=== PATIENT | female | born 1985 | race Caucasian/White ===

== ENCOUNTER 2016-11-28 02:21 | Emergency (ER) | payer SELFPAY ==
[2016-11-28] MEDS ORDERED: diphenhydrAMINE HCL 25 MG CAPSULE (FP) PO ONE ×2 (03:55→04:01)
[2016-11-28] MEDS ORDERED: CALAMINE 8% TOPICAL LOTION 177 ML BOTTLE TP PRN (03:55)
[2016-11-28 04:05] VITALS: BP 116/65; PULSE 58; TEMP 97.8; BMI 30.7
--- NOTE | 2016-11-28 04:06 | PDOC ---
History of Present Illness - General Chief Complaint: Rash Stated Complaint: RASH Time Seen by Provider: 11/28/16 03:28 - History of Present Illness Initial Comments: 11/28/16 03:56 31 year old previously healthy female presenting with 1.5 days of diffuse itchy rash. She denies insect bite, herbaceous contact, or other contact. Denies any new perfume, clothing, soap or anything different on her body. She has no known allergies. The rash originally started on her back and has spread to her arms, legs, and chests since she started scratching it. Denies any fevers, chills, nausea vomiting, diarrhea, or other symptoms. She does not have a primary care physician. Her pharmacy is the [facility] on [facility]. Past History - Past Medical History Allergies/Adverse Reactions: Allergies Allergy/AdvReac Type Severity Reaction Status Date / Time No Known Drug Allergies Allergy Unknown Verified 11/28/16 03:53 Home Medications: Ambulatory Orders Amoxicillin - [Amoxicillin 500mg Capsule -] 500 mg PO TID #30 capsule 01/13/13 Neomycin/Polymyxin B Sulf/Hc [Efnxrkum-Gwnblsdwr-Ls Ear Soln] 4 drop OT Acetaminophen [Tylenol .Regular Strength -] 650 mg PO Q4H PRN #0 tablet Ibuprofen [Motrin -] 600 mg PO Q4H PRN #0 tablet 01/21/13 Prednisone [Deltasone -] 40 mg PO DAILY #10 tablet 11/28/16 Prednisone [Deltasone -] 40 mg PO DAILY #5 tablet 11/28/16 Anemia: No Asthma: No Cancer: No Cardiac Disorders: No CVA: No COPD: No CHF: No Dementia: No Diabetes: No GI Disorders: No Disorders: No HTN: No Hypercholesterolemia: No Liver Disease: No Seizures: No Thyroid Disease: No - Surgical History Abdominal Surgery: No Appendectomy: No Cardiac Surgery: No Cholecystectomy: No Lung Surgery: No Neurologic Surgery: No Orthopedic Surgery: No - Reproductive History (#): 4 Para: 3 Therapeutic (s) & number: No Spontaneous : 0 - Psycho/Social/Smoking Cessation Hx Anxiety: No Suicidal Ideation: No Smoking Status: No Smoking History: Never smoked Have you smoked in the past 12 months: No Number of Cigarettes Smoked Daily: 0 Hx Alcohol Use: No Drug/Substance Use Hx: No Substance Use Type: None Hx Substance Use Treatment: No Review of Systems - Review of Systems Constitutional: No: Chills, Diaphoresis, Fever, Loss of Appetite HEENTM: No: Blurred Vision, Recent change in vision Respiratory: No: Cough, Orthopnea, Shortness of Breath, Stridor, Wheezing Cardiac (ROS): No: Chest Pain, Edema, Irregular Heart Rate ABD/GI: No: Diarrhea, Nausea, Poor Appetite, Vomiting : No: Burning, Dysuria Musculoskeletal: No: Joint Pain, Joint Swelling Integumentary: Yes: Erythema, Pruritus, Rash Neurological: No: Headache, Weakness *Physical Exam - Physical Exam General Appearance: Yes: Nourished, Appropriately Dressed. No: Apparent Distress HEENT: positive: EOMI, SALAS, Normal ENT Inspection, Normal Voice Neck: positive: Normal Thyroid, Supple. negative: Tender Respiratory/Chest: positive: Lungs Clear, Normal Breath Sounds. negative: Chest Tender, Respiratory Distress, Accessory Muscle Use Cardiovascular: positive: Regular Rhythm, Regular Rate, S1, S2. negative: Edema , JVD, Murmur Gastrointestinal/Abdominal: positive: Normal Bowel Sounds, Flat, Soft. negative : Tender Musculoskeletal: positive: Normal Inspection Extremity: positive: Erythema, Inflammation, Other (Erythamtous macular blacnhing rash diffuse across upper chest, upper back, upper arms, and thighs.) Integumentary: positive: Dry, Warm, Erythema, Rash (Per above) Neurologic: positive: Fully Oriented, Alert, Normal Mood/Affect Medical Decision Making - Medical Decision Making Healthy 31 year old female with pruritic erythematous blanching macular rash diffusely spread across her upper back, chest, legs, and arms. No sign of infection or anaphylaxis. Will treat the patient with Benadryl, 40MG steroids x 5 days, and calamine lotion with jewelry designer follow up as this is most likely an allergic reaction given nausea as well. 11/28/16 04:29 *DC/Admit/Observation/Transfer Diagnosis at time of Disposition: Rash and nonspecific skin eruption - Discharge Dispostion Condition at time of disposition: Improved Admit: No - Prescriptions Prescriptions: Prednisone [Deltasone -] 40 mg PO DAILY #5 tablet Prednisone [Deltasone -] 40 mg PO DAILY #10 tablet - Referrals Referrals: Bishop Kaminski MD [Staff Physician] - - Patient Instructions Additional Instructions: You were seen for a rash across your body. We believe that this is most likely an allergic reaction. Please take the steroids for 5 days, Benadryl as needed over the counter, and use the calamine lotion as needed. Please return if you have fevers, chills, or the rash does not get better. Please follow up with Dr. Kaminski the jewelry designer. - Attestations Physician Attestion: 11/28/16 04:37 I, Dr. Sandra Nieto, attest that this document has been prepared under my direction and personally reviewed by me in its entirety. I further attest, that it accurately reflects all work, treatment, procedures and medical decision -making performed by me.
--- NOTE | 2016-11-28 04:27 | PDOC ---
Attending Attestation - Resident Resident Name: Sandra Nieto - ED Attending Attestation I have performed the following: I have examined & evaluated the patient, The case was reviewed & discussed with the resident, I agree w/resident's findings & plan, Exceptions are as noted - HPI HPI: 11/28/16 04:25 31-year-old female with no past medical history presents with diffuse urticaria. The patient reports that she had noted symptoms in her back yesterday but progressed throughout her we'll body. She does not know any known exposures. She reports that is quite itchy. She is felt somewhat little nauseous with this but denies any pain or fevers. Denies any airway issues or chest pain. Do not take any medications. - Physicial Exam PE: 11/28/16 04:26 GENERAL: Awake, alert, and fully oriented, in no acute distress. HEAD: No signs of trauma EYES: PERRLA, EOMI, sclera anicteric, conjunctiva clear ENT: Auricles normal inspection, hearing grossly normal, nares patent, oropharynx clear without exudates. NECK: Normal ROM, supple, no lymphadenopathy, JVD, or masses LUNGS: Breath sounds equal, clear to auscultation bilaterally. No wheezes, and no crackles HEART: Regular rate and rhythm, normal S1 and S2, no murmurs, rubs or gallops ABDOMEN: Soft, nontender, normoactive bowel sounds. No guarding, no rebound. No masses EXTREMITIES: Normal range of motion, no edema. No clubbing or cyanosis. No cords, erythema, or tenderness NEUROLOGICAL: Cranial nerves II through XII grossly intact. Normal speech, normal gait SKIN: Warm, Dry, normal turgor. Diffuse urticaria on trunk, back, abdomen, extremities - Medical Decision Making 11/28/16 04:26 The patient likely has an ALLERGIC reaction. No signs of anaphylaxis. We'll give Benadryl and prednisone and have patient referred to an bus driver/monitor. Return precautions given.
== END 2016-11-28 04:59 | disposition home or self-care (01) ==
LOC: JER 02:21
DX: R21 Rash and other nonspecific skin eruption (principal)
CPT/HCPCS: 99281-25

== ENCOUNTER 2019-02-19 21:44 | Emergency (ER) | payer OTHER ==
[2019-02-19 22:12] VITALS: BP 127/60; PULSE 59; TEMP 98.1; BMI 35.6
--- NOTE | 2019-02-19 23:20 | PDOC ---
*Physical Exam - Vital Signs Last Vital Signs Temp Pulse Resp BP Pulse Ox 98.1 F 59 L 17 127/60 100 02/19/19 22:10 02/19/19 22:10 02/19/19 22:10 02/19/19 22:10 02/19/19 22:10 Medical Decision Making - Medical Decision Making 02/19/19 23:20 Patient seen by the advanced practice provider under my direct supervision. Ancillary testing reviewed as necessary. I agree with plan as outlined by the advanced practice provider. Discharge - Discharge Information Problems reviewed: Yes Clinical Impression/Diagnosis: Right arm pain Condition: Stable Disposition: HOME - Follow up/Referral - Patient Discharge Instructions Patient Printed Discharge Instructions: DI for Arm Pain Additional Instructions: take tylenol or ibuprofen every 6 hours as needed for pain follow up with your doctor as soon as possible. - Post Discharge Activity
--- NOTE | 2019-02-19 23:26 | PDOC ---
History of Present Illness - General Chief Complaint: Pain Stated Complaint: PAIN Time Seen by Provider: 02/19/19 23:15 History Source: Patient - History of Present Illness Initial Comments: 02/19/19 23:19 33 year old c/o upper back pain for 1-3 months. patient is c/o right antecubital area pain for the last 1 month now worse. patient denies taking any pain medication. denies recent travel, denies OCP use. 02/19/19 23:51 Past History - Past Medical History Allergies/Adverse Reactions: Allergies Allergy/AdvReac Type Severity Reaction Status Date / Time No Known Drug Allergies Allergy Unknown Verified 02/19/19 22:12 Home Medications: Ambulatory Orders Amoxicillin - [Amoxicillin 500mg Capsule -] 500 mg PO TID #30 capsule 01/13/13 Neomycin/Polymyxin B Sulf/Hc [Zpuylivu-Dixytgdzy-Wy Ear Soln] 4 drop OT Acetaminophen [Tylenol .Regular Strength -] 650 mg PO Q4H PRN #0 tablet Ibuprofen [Motrin -] 600 mg PO Q4H PRN #0 tablet 01/21/13 predniSONE [Deltasone -] 40 mg PO DAILY #10 tablet 11/28/16 predniSONE [Deltasone -] 40 mg PO DAILY #5 tablet 11/28/16 Anemia: No Asthma: No Cancer: No Cardiac Disorders: No CVA: No COPD: No CHF: No Dementia: No Diabetes: No GI Disorders: No Disorders: No HTN: No Hypercholesterolemia: No Liver Disease: No Seizures: No Thyroid Disease: No - Surgical History Abdominal Surgery: No Appendectomy: No Cardiac Surgery: No Cholecystectomy: No Lung Surgery: No Neurologic Surgery: No Orthopedic Surgery: No - Reproductive History (#): 4 Para: 3 Therapeutic (s) & number: No Spontaneous : 0 - Psycho Social/Smoking Cessation Hx Smoking Status: No Smoking History: Never smoked Have you smoked in the past 12 months: No Number of Cigarettes Smoked Daily: 0 Information on smoking cessation initiated: No Hx Alcohol Use: No Drug/Substance Use Hx: No Substance Use Type: None Hx Substance Use Treatment: No *Physical Exam - Vital Signs Last Vital Signs Temp Pulse Resp BP Pulse Ox 98.1 F 59 L 17 127/60 100 02/19/19 22:10 02/19/19 22:10 02/19/19 22:10 02/19/19 22:10 02/19/19 22:10 - Physical Exam General Appearance: Yes: Appropriately Dressed Respiratory/Chest: positive: Lungs Clear Cardiovascular: positive: Regular Rhythm, Regular Rate Extremity: positive: Normal Capillary Refill, Other (+ distal pulse) Integumentary: positive: Normal Color, Dry, Warm Neurologic: positive: Fully Oriented, Alert Medical Decision Making - Medical Decision Making 02/20/19 06:32 A: right arm pain P: us negative for DVT Nsaids PCP follow up Discharge - Discharge Information Problems reviewed: Yes Clinical Impression/Diagnosis: Right arm pain Condition: Stable Disposition: HOME - Follow up/Referral - Patient Discharge Instructions Patient Printed Discharge Instructions: DI for Arm Pain Additional Instructions: take tylenol or ibuprofen every 6 hours as needed for pain follow up with your doctor as soon as possible. - Post Discharge Activity
[2019-02-19] MEDS ORDERED: ACETAMINOPHEN 500 MG TABLET (FP) PO ONE (23:29)
[2019-02-19] MEDS ORDERED: ACETAMINOPHEN 500 MG TABLET (FP) ONE (23:54)
== END 2019-02-20 01:05 | disposition home or self-care (01) ==
LOC: JER 21:44
DX: M79.601 Pain in right arm (principal)
CPT/HCPCS: 93971; 99281-25

== ENCOUNTER 2021-10-10 01:04 | Emergency (ER) | payer OTHER ==
[2021-10-10 01:27] VITALS: BP 108/75; PULSE 56; TEMP 98.2; BMI 31.9
[2021-10-10] MEDS ORDERED: ACETAMINOPHEN 500 MG TABLET (FP) PO ONE (02:53)
[2021-10-10] MEDS ORDERED: METHOCARBAMOL 500 MG TABLET PO ONE (02:53)
[2021-10-10] MEDS ORDERED: LIDOCAINE 5% TOPICAL PATCH TP ONE (02:53)
[2021-10-10] MEDS ORDERED: METHOCARBAMOL 500 MG TABLET ONE ×2 (03:14→03:20)
[2021-10-10] MEDS ORDERED: LIDOCAINE 5% TOPICAL PATCH ONE (03:14)
[2021-10-10] MEDS ORDERED: IBUPROFEN 600 MG TABLET (FP) PO ONE ×2 (03:17→03:19)
[2021-10-10] MEDS ORDERED: LIDOCAINE PATCH REMOVAL MC SCH (22:00)
== END 2021-10-10 06:13 | disposition home or self-care (01) ==
LOC: JER 01:04
DX: M62.830 Muscle spasm of back (principal)
CPT/HCPCS: 72131-TC; 99284-25

== ENCOUNTER 2022-11-17 14:24 | Emergency (ER) | payer OTHER ==
[2022-11-17 14:31] VITALS: BP 104/61; PULSE 63; RESP 16; TEMP 98.4; BMI 20.5
[2022-11-17] MEDS ORDERED: KETOROLAC TROMETHAMINE 15 MG/ML VIAL IVPUSH ONE (15:25)
[2022-11-17 16:16] LABS: BASO % 0.5 % (0-2.0); EOS % 5.8 % (0-4.5); HEMATOCRIT 38.1 % (32.4-45.2); HEMOGLOBIN 12.4 GM/dL (10.7-15.3); LYMPH % 23.1 % (8-40); MCH 27.3 pg (25.7-33.7); MCHC 32.6 g/dl (32.0-36.0); MEAN CELL VOLUME 83.8 fl (80-96); MEAN PLT VOLUME 7.7 fl (7.5-11.1); MONO % 9.6 % (3.8-10.2); PLATELET COUNT 251 10^3/uL (134-434); RBC 4.55 M/mm3 (3.60-5.2); RDW 14.6 % (11.6-15.6); WHITE BLOOD COUNT 7.6 K/mm3 (4.0-10.0)
[2022-11-17 16:23] LABS: EPI CELLS 27 /uL (0-25.1); HYALINE CASTS 0 /uL (0-3.1); URINE APPEARANCE CLEAR; URINE BACTERIA 504 /uL (0-1359); URINE BILIRUBIN NEGATIVE (NEGATIVE); URINE COLOR YELLOW; URINE GLUCOSE (UA) NEGATIVE (NEGATIVE); URINE KETONE NEGATIVE (NEGATIVE); URINE LEUK ESTERASE TRACE (NEGATIVE); URINE NITRITE NEGATIVE (NEGATIVE); URINE PROTEIN NEGATIVE (NEGATIVE); URINE RBC 4 /uL (0-23.9); URINE UROBILINOGEN 0.2 mg/dL (0.2-1.0); URINE WBC 6 /uL (0-25.8)
[2022-11-17 16:47] LABS: CHLORIDE 105 mmol/L (98-107); POTASSIUM 4.1 mmol/L (3.5-5.1); SODIUM 139 mmol/L (136-145)
[2022-11-17 16:49] LABS: ALBUMIN 3.8 g/dl (3.4-5.0); ANION GAP 8 MMOL/L (8-16); BLOOD UREA NITROGEN 14.3 mg/dL (7-18); CO2 26 mmol/L (21-32); GLUCOSE,RANDOM 90 mg/dL (74-106)
[2022-11-17 16:52] LABS: CREATININE 0.6 mg/dL (0.55-1.3); SGOT/AST 23 U/L (15-37); SGPT/ALT 31 U/L (13-61)
[2022-11-17 16:54] LABS: BILIRUBIN,TOTAL < 0.1 mg/dL (0.2-1); TOT PROT 7.5 g/dl (6.4-8.2)
[2022-11-17 16:55] LABS: ALK PHOS 63 U/L (45-117)
[2022-11-17 17:23] LABS: ERYTHROCYTE SEDIMENTATION RATE 8 mm/hr (0-20)
[2022-11-20 00:06] LABS: CYCLIC CITRULLINE PEPTIDE AB 6 units (0-19)
== END 2022-11-17 16:14 | disposition home or self-care (01) ==
LOC: JERFT 14:24
PROC: 3E0333Z Introduction of Anti-inflammatory into Peripheral Vein, Percutaneous Approach (ICD-10-PCS; principal; 2022-11-17)
DX: M79.644 Pain in right finger(s) (principal); M79.645 Pain in left finger(s); M79.674 Pain in right toe(s); M79.675 Pain in left toe(s); R22.43 Localized swelling, mass and lump, lower limb, bilateral; R22.33 Localized swelling, mass and lump, upper limb, bilateral; M19.90 Unspecified osteoarthritis, unspecified site
CPT/HCPCS: 36415; 80053; 81003; 85025; 85651; 86038; 86200; 86431; 99284-25

== ENCOUNTER 2023-07-14 13:33 | Emergency (ER) | payer OTHER ==
[2023-07-14 13:50] VITALS: BP 142/76; PULSE 76; RESP 18; TEMP 98.8; BMI 31.8
[2023-07-14 15:43] LABS: HCG,QUALITATIVE URINE Negative
== END 2023-07-14 18:24 | disposition home or self-care (01) ==
LOC: FER 13:33
DX: R10.2 Pelvic and perineal pain (principal); R30.0 Dysuria; N39.0 Urinary tract infection, site not specified; R10.30 Lower abdominal pain, unspecified
CPT/HCPCS: 36415; 76830-TC; 81003; 81015; 84703; 87086; 87186; 87491; 87591; 99284-25

== ENCOUNTER 2024-10-18 22:02 | Emergency (ER) | payer OTHER ==
[2024-10-18 22:23] VITALS: BP 119/60; PULSE 77; RESP 18; TEMP 98.7; BMI 34.0
[2024-10-18] MEDS ORDERED: IBUPROFEN 600 MG TABLET (FP) PO ONE (22:48)
[2024-10-18] MEDS: IBUPROFEN 600 MG TABLET (FP) PO ONE (22:50)
== END 2024-10-18 22:53 | disposition home or self-care (01) ==
LOC: JER 22:02
DX: L03.313 Cellulitis of chest wall (principal); L29.9 Pruritus, unspecified; W57.XXXA Bitten or stung by nonvenomous insect and other nonvenomous arthropods, initial encounter; Y92.830 Public park as the place of occurrence of the external cause
CPT/HCPCS: 99283-25